=== PATIENT | female | born 2000 | race Two or more races ===

== ENCOUNTER 2023-08-25 10:15 | Inpatient (IN) | payer MEDICAID, OTHER ==
[~2023-08-25] VITALS: Ht 157.5 cm; Wt 63.5 kg
[~2023-08-25 10:15] MED LIST: BACTROBAN 2% TP; BUPR-72 PO; OLAN5TAB52 PO; SULF-261 PO
[2023-08-25] MEDS ORDERED: HALOPERIDOL 5 MG TABLET PO PRN (11:15)
[2023-08-25] MEDS ORDERED: BACTDSB PO (11:27)
[2023-08-25 14:06] LABS: COVID AG,FIA SOURCE NASAL SWAB
[2023-08-25 14:26] LABS: SARS-COV2 (COVID) ANTIGEN,FIA Negative (Negative)
[2023-08-25 15:01] LABS: BASOPHILS % (AUTO) 0.3 % (0.0-2.0); EOSINOPHILS % (AUTO) 0.3 % (1.0-6.0); HEMATOCRIT 33.5 % (36-46); HEMOGLOBIN 10.4 g/dL (12.0-16.0); LYMPHOCYTES # (AUTO) 1.7 K/uL (1.0-4.8); LYMPHOCYTES % (AUTO) 14.6 % (22.0-44.0); MEAN CORPUSCULAR HEMOGLOBIN 24.7 pg (26.0-34.0); MEAN CORPUSCULAR HGB CONC 31.1 G/dL (31.0-37.0); MEAN CORPUSCULAR VOLUME 79 fL (80-100); MONOCYTES # (AUTO) 0.6 K/uL (0.1-1.0); MONOCYTES % (AUTO) 5.1 % (2.0-9.0); NEUTROPHILS # (AUTO) 9.2 K/uL (1.8-7.7); NEUTROPHILS % (AUTO) 79.7 % (40.0-70.0); PLATELET COUNT (AUTO) 507 K/uL (150-450); RED BLOOD CELL COUNT(AUTO) 4.23 MIL/uL (4.00-5.20); RED CELL DISTRIBUTION WIDTH 17.8 % (11.5-14.5); WHITE BLOOD COUNT (AUTO) 11.6 K/uL (4.5-11.0)
[2023-08-25 15:27] LABS: ANION GAP 15 mmol/L (8-16); CARBON DIOXIDE 23 mmol/L (22-29); CHLORIDE 102 mmol/L (98-107); CREATININE 0.73 mg/dL (0.60-1.30); GLOMERULAR FILTR. RATE CALC > 60 mL/min (>60); GLUCOSE,RANDOM 77 mg/dL (70-110); POTASSIUM 3.8 mmol/L (3.5-5.1); SODIUM SERUM 140 mmol/L (136-145); UREA NITROGEN, BLOOD 10 mg/dL (7-18)
[2023-08-25 15:29] LABS: ALCOHOL, BLOOD (SERUM) < 3 mg/dL (0-10)
[2023-08-25 15:35] LABS: ALANINE AMINOTRANSFERASE 19 U/L (12-78); ALBUMIN 3.1 g/dL (3.4-5.0); ALKALINE PHOSPHATASE 81 U/L (46-116); ASPARTATE AMINOTRANSFERASE 26 U/L (15-37); BILIRUBIN,TOTAL 0.5 mg/dL (0.1-1.0); TOTAL PROTEIN, SERUM 7.9 g/dL (6.4-8.2)
[2023-08-25] MEDS: LORazepam 2 MG/ML VIAL IM ONE (16:52)
[2023-08-25] MEDS: DiphenhydrAMINE HCL 50 MG/ML VIAL IM ONE (16:53)
[2023-08-25] MEDS: HALOPERIDOL LACTATE 5 MG/ML VIAL IM ONE (16:53)
[2023-08-25 17:22] LABS: APPEARANCE,URINE CLEAR (CLEAR); BILIRUBIN,URINE NEGATIVE (NEGATIVE); COLOR,URINE COLORLESS (YELLOW); GLUCOSE, URINE (UA) NEGATIVE (NEGATIVE); LEUKOCYTE ESTERASE ,URINE NEGATIVE (NEGATIVE); NITRATE,URINE NEGATIVE (NEGATIVE); OCCULT BLOOD,URINE TRACE (NEGATIVE); PH,URINE 7.5 (5.0-8.0); PROTEIN,URINE NEGATIVE (NEGATIVE); SPECIFIC GRAVITIY, URINE 1.005 (1.003-1.030); UROBILINOGEN,URINE <=1.0 mg/dL (<=1.0)
[2023-08-25 17:55] LABS: RBC,URINE 0-2 /HPF (0-2)
[2023-08-25 17:56] LABS: ALCOHOL, URINE DRUG SCREEN NEGATIVE (NEGATIVE); AMPHET/METH SCREEN,URINE POSITIVE (NEGATIVE); BACTERIA,URINE Moderate /HPF (None Seen); BARBITURATE SCREEN, URINE NEGATIVE (NEGATIVE); BENZODIAZEPINES SCREEN,URINE POSITIVE (NEGATIVE); CANNABINOID SCREEN,URINE NEGATIVE (NEGATIVE); COCAINE SCREEN,URINE NEGATIVE (NEGATIVE); METHADONE SCREEN, URINE NEGATIVE (NEGATIVE); OPIATE SCREEN,URINE NEGATIVE (NEGATIVE); PHENCYCLIDINE SCREEN,URINE NEGATIVE (NEGATIVE)
[2023-08-25 18:22] LABS: PH,URINE DRUG SCREEN 7.5 (5.0-8.0)
[2023-08-25 21:23] VITALS: RESP 18
[2023-08-25 21:29] VITALS: RESP 18
[2023-08-26] MEDS ORDERED: PETROLATUM,WHITE 28 GM JELLY TP PRN (05:45)
[2023-08-26] MEDS ORDERED: DOCUSATE SODIUM 100 MG CAPSULE PO PRN (05:45)
[2023-08-26] MEDS ORDERED: OMEPRAZOLE 20 MG CAPSULE PO PRN (05:45)
[2023-08-26] MEDS ORDERED: CloNIDine HCL 0.1 MG TABLET PO PRN (05:45)
[2023-08-26] MEDS ORDERED: BENZOCAINE/MENTHOL LOZENGE PO PRN (05:45)
[2023-08-26] MEDS ORDERED: MAG HYDROX/ALUMINUM HYD/SIMETH ES 30 ML SUSPENSION UDCUP PO PRN (05:45)
[2023-08-26] MEDS ORDERED: IBUPROFEN 600 MG TABLET PO PRN (05:45)
[2023-08-26] MEDS ORDERED: ACETAMINOPHEN 325 MG TABLET PO PRN (05:45)
[2023-08-26] MEDS ORDERED: MAGNESIUM HYDROXIDE SUSPENSION 30 ML UDCUP PO PRN (05:45)
[2023-08-26] MEDS ORDERED: ONDANSETRON HCL 4 MG TABLET PO PRN (05:45)
[2023-08-26] MEDS ORDERED: LOPERAMIDE HCL 2 MG CAPSULE PO PRN (05:45)
[2023-08-26] MEDS ORDERED: ALBUTEROL SULFATE HFA 90 MCG/PUFF 8 GM INHALER IH PRN (05:45)
[2023-08-26] MEDS ORDERED: PNEUMOCOCCAL VACCINE POLYVALENT 0.5 ML SYRINGE [PPSV23] IM. ONE (06:30)
[2023-08-26 09:00] VITALS: BP 94/60; PULSE 105; RESP 16; TEMP 98.7
[2023-08-26] MEDS: SULFAMETHOX/TRIMETH DS 800-160 MG/TABLET PO SCH (10:39)
[2023-08-26] MEDS: BuPROPion HCL 150 MG SR TABLET PO SCH (14:12)
[2023-08-26] MEDS: DIVALPROEX SODIUM 500 MG DR TABLET PO SCH (17:08)
[2023-08-26 20:12] VITALS: RESP 18
[2023-08-26] MEDS: OLANZapine 5 MG TABLET PO SCH (20:58)
[2023-08-27 08:34] LABS: BASOPHILS % (AUTO) 0.3 % (0.0-2.0); EOSINOPHILS % (AUTO) 1.7 % (1.0-6.0); HEMATOCRIT 37.5 % (36-46); HEMOGLOBIN 11.9 g/dL (12.0-16.0); LYMPHOCYTES # (AUTO) 1.3 K/uL (1.0-4.8); LYMPHOCYTES % (AUTO) 18.8 % (22.0-44.0); MEAN CORPUSCULAR HEMOGLOBIN 25.4 pg (26.0-34.0); MEAN CORPUSCULAR HGB CONC 31.8 G/dL (31.0-37.0); MEAN CORPUSCULAR VOLUME 80 fL (80-100); MONOCYTES # (AUTO) 0.3 K/uL (0.1-1.0); MONOCYTES % (AUTO) 4.6 % (2.0-9.0); NEUTROPHILS # (AUTO) 5.2 K/uL (1.8-7.7); NEUTROPHILS % (AUTO) 74.6 % (40.0-70.0); PLATELET COUNT (AUTO) 543 K/uL (150-450)
[2023-08-27 09:00] VITALS: BP 118/61; PULSE 102; RESP 16; TEMP 97.8; O2SAT 100
[2023-08-27 09:46] LABS: ALANINE AMINOTRANSFERASE 23 U/L (12-78); ALBUMIN 3.1 g/dL (3.4-5.0); ALKALINE PHOSPHATASE 79 U/L (46-116); ANION GAP 10 mmol/L (8-16); ASPARTATE AMINOTRANSFERASE 13 U/L (15-37); BILIRUBIN,TOTAL 0.1 mg/dL (0.1-1.0); CALCIUM, TOTAL 8.7 mg/dL (8.8-10.5); CARBON DIOXIDE 25 mmol/L (22-29); CHLORIDE 103 mmol/L (98-107); CHOL/HDL RATIO 2.6 (3.9-5.7); CHOLESTEROL 132 mg/dL (131-200); CREATININE 0.86 mg/dL (0.60-1.30); GLOMERULAR FILTR. RATE CALC > 60 mL/min (>60); GLUCOSE,RANDOM 107 mg/dL (70-110); HDL CHOLESTEROL 51 mg/dL (40-60); LDL CHOL (CALC.) 66 mg/dL (0-130); PHOSPHORUS 3.3 mg/dL (2.5-4.9); POTASSIUM 4.8 mmol/L (3.5-5.1); SODIUM SERUM 138 mmol/L (136-145); THYROID STIMULATING HORMONE 0.81 uIU/mL (0.36-3.74); TOTAL PROTEIN, SERUM 8.1 g/dL (6.4-8.2); TRIGLYCERIDES 77 mg/dL (15-150); UREA NITROGEN, BLOOD 10 mg/dL (7-18)
[2023-08-27] MEDS: ZOLPIDEM TARTRATE 10 MG TABLET PO PRN (21:37)
[2023-08-27 22:30] VITALS: BP 119/74; PULSE 96; RESP 18; TEMP 97.5; O2SAT 99
[2023-08-28] MEDS: LORazepam 2 MG TABLET PO PRN (08:00)
[2023-08-28] MEDS: MUPIROCIN CALCIUM 2% 22 GM OINTMENT TP SCH (08:08)
[2023-08-28 09:48] VITALS: BP 129/76; PULSE 106; RESP 18; TEMP 98.1; O2SAT 100
[2023-08-28 21:53] VITALS: BP 121/79; PULSE 89; RESP 18; TEMP 98.3; O2SAT 96
[2023-08-29] MEDS: BACITRACIN 28 GM OINTMENT TP PRN (08:50)
[2023-08-29 09:36] VITALS: BP 128/84; PULSE 98; RESP 18; O2SAT 99
[2023-08-29 21:08] VITALS: BP 109/78; PULSE 106; RESP 18; TEMP 97.4; O2SAT 100
[2023-08-30 09:00] VITALS: BP 144/84; PULSE 69; RESP 19; TEMP 97.5; O2SAT 99
[2023-08-30] MEDS ORDERED: DIVA-112 PO (13:31)
[2023-08-30] MEDS ORDERED: MUPI1OIN5 NASAL (13:35)
[2023-08-30] MEDS ORDERED: AMOX1TAB16 PO (14:36)
== END 2023-08-30 15:33 | disposition home or self-care (01) | DRG 750 ==
LOC: EMS 10:15 → 3EC 19:40 → 3EI 08-29 12:27
PROVIDERS: ADMIT Psychiatry & Neurology Psychiatry; ATTEND Psychiatry & Neurology Psychiatry
PROC: GZHZZZZ Group Psychotherapy (ICD-10-PCS; principal; 2023-08-26)
PROC: GZ51ZZZ Individual Psychotherapy, Behavioral (ICD-10-PCS; 2023-08-26)
DX: F20.9 Schizophrenia, unspecified (principal); R45.851 Suicidal ideations; F41.9 Anxiety disorder, unspecified; F43.10 Post-traumatic stress disorder, unspecified; G47.00 Insomnia, unspecified; J45.909 Unspecified asthma, uncomplicated; K59.00 Constipation, unspecified; Z59.00 Homelessness unspecified; Z20.822 Contact with and (suspected) exposure to COVID-19
CPT/HCPCS: 80053; 80061; 80307; 81001; 83735; 84100; 84443; 84703; 85025; 87081; 87086; 87186; 99285; G0480; J1200; J1630; J2060